=== PATIENT | male | born 1990 | race African-American/Black ===

== ENCOUNTER 2017-07-16 14:11 | Emergency (ER) | payer BC, OTHER ==
[2017-07-16 14:25] VITALS: BP 148/79; PULSE 65; TEMP 98.6; BMI 27.4
--- NOTE | 2017-07-16 14:25 | PDOC ---
Rapid Medical Evaluation Time Seen by Provider: 07/16/17 14:22 Medical Evaluation: 07/16/17 14:22 I have performed a brief in-person evaluation of this patient. The patient presents with a chief complaint of: left index finger pain Pertinent physical exam findings: swelling to cuticle of left index finger. Pad of finger nontender. no Streaking present. I have ordered the following: nothing The patient will proceed to the ED for further evaluation. Discharge Disposition - Diagnosis Finger pain, left - Referrals - Patient Instructions - Post Discharge Activity
--- NOTE | 2017-07-16 14:59 | PDOC ---
History of Present Illness - General Chief Complaint: Pain Stated Complaint: FINGER INFECTION Time Seen by Provider: 07/16/17 14:22 - History of Present Illness Initial Comments: 76-year-old male presents for evaluation of left index finger swelling and pain 1 day. No other associated symptoms 07/16/17 14:53 Past History - Past Medical History Home Medications: Ambulatory Orders Cephalexin [Keflex] 500 mg PO QID #40 capsule 07/16/17 Sulfamethoxazole/Trimethoprim [Bactrim Ds -] 1 tab PO BID #14 tablet 07/16/17 COPD: No - Suicide/Smoking/Psychosocial Hx Smoking History: Never smoked Information on smoking cessation initiated: No Hx Alcohol Use: No Drug/Substance Use Hx: No Substance Use Type: None Review of Systems - Review of Systems Comments:: GENERAL/CONSTITUTIONAL: [No fever or chills. No weakness. No weight change.] HEAD, EYES, EARS, NOSE AND THROAT: [No change in vision. No ear pain or discharge. No sore throat.] CARDIOVASCULAR: [No chest pain or shortness of breath.] RESPIRATORY: [No cough, wheezing, or hemoptysis.] GASTROINTESTINAL: [No nausea, vomiting, diarrhea or constipation. No rectal bleeding.] GENITOURINARY: [No dysuria, frequency, or change in urination.] MUSCULOSKELETAL: [No joint or muscle swelling or pain. No neck or back pain. Eras left second finger swelling and pain] SKIN AND BREASTS: [No rash or easy bruising.] NEUROLOGIC: [No headache, vertigo, loss of consciousness, or loss of sensation.] PSYCHIATRIC: [No depression or anxiety.] ENDOCRINE: [No increased thirst. No abnormal weight change.] HEMATOLOGIC/LYMPHATIC: [No anemia, easy bleeding, or history of blood clots.] ALLERGIC/IMMUNOLOGIC: [No hives or skin allergy. No latex allergy.] 07/16/17 14:54 *Physical Exam - Vital Signs Last Vital Signs Temp Pulse Resp BP Pulse Ox 98.6 F 65 18 148/79 100 07/16/17 14:23 07/16/17 14:23 07/16/17 14:23 07/16/17 14:23 07/16/17 14:23 Procedures - Incision and Drainage I&D Site: Left: Other (index finger radial nail fold) Anesthesia: 1% Lidocaine Volume(ml): 5 Blade Size: 11 Attempts: 1 Complications: none Dressing: Yes (aseptic I&D Cx sent dsd applied no packing) *DC/Admit/Observation/Transfer Diagnosis at time of Disposition: Finger pain, left, Paronychia of finger of left hand - Discharge Dispostion Disposition: HOME Condition at time of disposition: Stable Decision to Admit order: No - Referrals Referrals: Juvencio Carreon MD [Staff Physician] - - Patient Instructions Printed Discharge Instructions: EVAN Gonzalez for Paronychia Additional Instructions: It's important to follow up with hand surgery in the next 1-2 days. Keep the dressing on for the next 48 hours and remove and leave open to air if draining you may cover with dry sterile dressing. I prescribed antibiotics, he should finish the entire course as prescribed. Return to the emergency room if symptoms worsen or go unresolved prior to follow-up with hand surgery. He may take Tylenol and Motrin for pain - Post Discharge Activity
== END 2017-07-16 15:28 | disposition home or self-care (01) ==
LOC: JERFT 14:11
PROC: 0J9K0ZZ Drainage of Left Hand Subcutaneous Tissue and Fascia, Open Approach (ICD-10-PCS; principal; 2017-07-16)
DX: L03.012 Cellulitis of left finger (principal)
CPT/HCPCS: 87070; 87077; 87205; 99282-25

== ENCOUNTER 2017-07-19 02:03 | Emergency (ER) | payer OTHER ==
[2017-07-19 02:28] VITALS: BP 132/74; PULSE 72; TEMP 98.2; BMI 32.3
--- NOTE | 2017-07-19 02:46 | PDOC ---
History of Present Illness - General Chief Complaint: Wound Stated Complaint: FINGER PAIN Time Seen by Provider: 07/19/17 02:14 History Source: Patient - History of Present Illness Initial Comments: 07/19/17 02:39 26 year old male with left index finger paronychia seen in the ED on 07/16/14 return with worsening swelling to left index finger pain, erythema and swelling to the distal end of left index finger. denies fever chills. Past History - Past Medical History Allergies/Adverse Reactions: Allergies Allergy/AdvReac Type Severity Reaction Status Date / Time No Known Allergies Allergy Verified 07/19/17 02:13 Home Medications: Ambulatory Orders Cephalexin [Keflex] 500 mg PO QID #40 capsule 07/16/17 Sulfamethoxazole/Trimethoprim [Bactrim Ds -] 1 tab PO BID #14 tablet 07/16/17 COPD: No - Suicide/Smoking/Psychosocial Hx Smoking History: Never smoked Hx Alcohol Use: No Drug/Substance Use Hx: No Substance Use Type: None Review of Systems - Review of Systems Able to Perform ROS?: Yes Is the patient limited Surinamese proficient: No Constitutional: No: Symptoms Reported, See HPI, Chills, Diaphoresis, Fever, Loss of Appetite, Malaise, Night Sweats, Weakness, Weight Stable, Unintentional Wgt. Loss, Unexplained wgt Loss, Other Integumentary: Yes: Erythema (left index finger erythema) *Physical Exam - Vital Signs Last Vital Signs Temp Pulse Resp BP Pulse Ox 98.2 F 72 16 132/74 98 07/19/17 02:13 07/19/17 02:13 07/19/17 02:13 07/19/17 02:13 07/19/17 02:13 - Physical Exam General Appearance: Yes: Appropriately Dressed Musculoskeletal: positive: Normal Inspection Extremity: positive: Erythema (left index finger, edema no streaking up the finger) Integumentary: positive: Normal Color, Dry, Warm Neurologic: positive: Fully Oriented, Alert, Normal Mood/Affect Medical Decision Making - Medical Decision Making Wound check of the paronychia P wound reevaluation *DC/Admit/Observation/Transfer Diagnosis at time of Disposition: Paronychia of finger of left hand, Wound check, abscess - Discharge Dispostion Disposition: HOME - Referrals Referrals: Jacek Abebe MD [Staff Physician] - Call tomorrow - Patient Instructions Printed Discharge Instructions: Paronychia Additional Instructions: soak in warm water 4 times a day continue your antibiotics. follow up with hand surgery return to the ER for worsening symptoms. - Post Discharge Activity Forms/Work/School Notes: Back to Work
--- NOTE | 2017-07-19 02:51 | PDOC ---
*Physical Exam - Vital Signs Last Vital Signs Temp Pulse Resp BP Pulse Ox 98.2 F 72 16 132/74 98 07/19/17 02:13 07/19/17 02:13 07/19/17 02:13 07/19/17 02:13 07/19/17 02:13 Medical Decision Making - Medical Decision Making 07/19/17 02:50 agree with care from [facility] *DC/Admit/Observation/Transfer Diagnosis at time of Disposition: Paronychia of finger of left hand, Wound check, abscess - Discharge Dispostion Disposition: HOME - Referrals Referrals: Jacek Abebe MD [Staff Physician] - Call tomorrow - Patient Instructions Printed Discharge Instructions: Paronychia Additional Instructions: soak in warm water 4 times a day continue your antibiotics. follow up with hand surgery return to the ER for worsening symptoms. - Post Discharge Activity Forms/Work/School Notes: Back to Work
== END 2017-07-19 02:45 | disposition home or self-care (01) ==
LOC: JER 02:03
DX: L03.012 Cellulitis of left finger (principal)
CPT/HCPCS: 99281-25

== ENCOUNTER 2017-10-07 00:45 | Emergency (ER) | payer OTHER ==
[2017-10-07 00:55] VITALS: BP 144/86; PULSE 80; TEMP 98.3; BMI 33.0
[2017-10-07] MEDS ORDERED: KETOROLAC TROMETHAMINE 30 MG/1 ML VIAL IM ONE (01:16)
[2017-10-07] MEDS ORDERED: CYCLOBENZAPRINE HCL 10 MG TABLET (FP) PO ONE (01:16)
[2017-10-07] MEDS ORDERED: CYCLOBENZAPRINE HCL 10 MG TABLET (FP) ONE (01:22)
[2017-10-07] MEDS ORDERED: KETOROLAC TROMETHAMINE 30 MG/1 ML VIAL ONE (01:22)
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
== END 2017-10-07 02:19 | disposition home or self-care (01) ==
LOC: JER 00:45
PROC: 3E0233Z Introduction of Anti-inflammatory into Muscle, Percutaneous Approach (ICD-10-PCS; principal; 2017-10-07)
DX: M62.830 Muscle spasm of back (principal); V43.52XA Car driver injured in collision with other type car in traffic accident, initial encounter; Y93.9 Activity, unspecified; Y92.410 Unspecified street and highway as the place of occurrence of the external cause
CPT/HCPCS: 99283-25

== ENCOUNTER 2017-12-05 17:09 | Emergency (ER) | payer OTHER ==
[2017-12-05 17:19] VITALS: BP 131/87; PULSE 65; TEMP 98.3; BMI 32.3
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
== END 2017-12-05 18:31 | disposition home or self-care (01) ==
LOC: JERFT 17:09
DX: S29.012A Strain of muscle and tendon of back wall of thorax, initial encounter (principal); V43.52XA Car driver injured in collision with other type car in traffic accident, initial encounter; Y93.89 Activity, other specified; Y92.410 Unspecified street and highway as the place of occurrence of the external cause
CPT/HCPCS: 71046-TC-FY; 71101-TC-RT-FY; 99281-25

== ENCOUNTER 2020-10-10 01:46 | Emergency (ER) | payer BC, OTHER ==
[2020-10-10] MEDS ORDERED: DIPHTH,PERTUSS(ACELL),TET 0.5 ML DISP.SYRIN IM ONE ×2 (02:39→03:06)
[2020-10-10 03:04] VITALS: BP 133/77; PULSE 59; TEMP 98; BMI 34.1
== END 2020-10-10 05:31 | disposition home or self-care (01) ==
LOC: JER 01:46
PROC: 0HQKXZZ Repair Right Lower Leg Skin, External Approach (ICD-10-PCS; principal; 2020-10-10)
PROC: 3E0234Z Introduction of Serum, Toxoid and Vaccine into Muscle, Percutaneous Approach (ICD-10-PCS; 2020-10-10)
DX: S61.210A Laceration without foreign body of right index finger without damage to nail, initial encounter (principal)
CPT/HCPCS: 73110-TC-RT-FY; 73130-TC-RT-FY; 90715; 99284-25